=== PATIENT | female | born 1965 | race Caucasian/White ===

== ENCOUNTER → 2017-10-26 | Outpatient (CLI) | payer BC ==
[~2017-10-26] MED LIST: LIDOCAINE 1%-EPI 1:100K, 20ML ONE
== END | disposition home or self-care (01) ==
LOC: CFH 13:41
PROVIDERS: ATTEND Genetic Counselor, MS
DX: N63.22 Unspecified lump in the left breast, upper inner quadrant (principal)
CPT/HCPCS: 19083; 76641; 88305; G0204; J3490

== ENCOUNTER → 2017-11-27 | Outpatient (CLI) | payer BC ==
[~2017-11-27] MED LIST changes: +LIDOCAINE 1%, 10ML ONE; -LIDOCAINE 1%-EPI 1:100K, 20ML ONE; +LIDOCAINE 1%-EPI 1:100K, 30ML ONE
== END | disposition home or self-care (01) ==
LOC: CFH 14:56
PROVIDERS: ATTEND Internal Medicine Hematology & Oncology
DX: C50.212 Malignant neoplasm of upper-inner quadrant of left female breast (principal); N64.89 Other specified disorders of breast
CPT/HCPCS: 19083; 19084; 76642; 77066; 88305; J3490

== ENCOUNTER 2017-12-18 21:18 | Emergency (ER) | payer BC, MEDICAID ==
[~2017-12-18] VITALS: Ht 167.6 cm; Wt 64.4 kg
[2017-12-18] MEDS ORDERED: SODIUM CHLORIDE FLUSH 10ML SYR IVF ONE (22:00)
[2017-12-18 22:36] LABS: MICROSCOPIC AUTO
[2017-12-18 22:39] LABS: CULTURE INDICATED? NO
[2017-12-18 22:41] LABS: MEAN CORPUSCULAR HEMOGLOBIN 32.9 pg (27.0-34.8); MEAN CORPUSCULAR HGB CONC 33.8 g/dL (32.4-35.8); MEAN CORPUSCULAR VOLUME 97.4 fL (80-100); MEAN PLATELET VOLUME 8.9 fL (7.4-10.4); PLATELET COUNT 246 x10^3/uL (130-400); RED CELL DISTRIBUTION WIDTH 13.9 % (9.6-15.2)
[2017-12-18 22:53] LABS: ALANINE AMINOTRANSFERASE 139 U/L (12-78); ALBUMIN 3.4 g/dL (3.4-5.0); ANION GAP 9 mmol/L (5-15); CALCIUM 8.6 mg/dL (8.5-10.1); CHLORIDE 103 mmol/L (98-107); CREATININE 0.79 mg/dL (0.55-1.02)
[2017-12-18 22:55] LABS: ALKALINE PHOSPHATASE 145 U/L (45-117); TOTAL PROTEIN 7.6 g/dL (6.4-8.2)
[2017-12-18 22:56] LABS: RAPID INFLUENZA A Negative (Negative); RAPID INFLUENZA B Negative (Negative)
[2017-12-18 23:26] LABS: MD YES
[2017-12-18 23:30] LABS: <PLATELET ESTIMATE> ADEQUATE; <PLT MORPHOLOGY> NORMAL PLT MORPH; <RBC MORPHOLOGY> NORMAL; BAND#(MANUAL) 0.13 x10^3/uL; BANDS%(MANUAL) 4 % (0-7); LYMPH#(MANUAL) 2.18 x10^3/uL (1-3.4); LYMPHS% (MANUAL) 66 % (22-44); MONOS#(MANUAL) 0.96 x10^3/uL (0.3-2.7); MONOS% (MANUAL) 29 % (2-9); SEG#(MANUAL) 0.03 x10^3/uL (1.8-6.8); SEGS% (MANUAL) 1 % (42-75)
[2017-12-18] MEDS ORDERED: VANCOMYCIN PER PHARMACY MC ONE (23:30)
[2017-12-18] MEDS ORDERED: CEFEPIME 2 GM in DEXTROSE 5% 100 ML IV ONE (23:30)
[2017-12-18] MEDS ORDERED: LEVO500T8 PO (23:45)
[2017-12-19] MEDS ORDERED: VANCOMYCIN 1,200 MG in SODIUM CHLORIDE 0.9% 250 ML IV ONE
[2017-12-19] MEDS ORDERED: methylPREDNISolone SOD SUCC 125 MG/2 ML ONE (02:11)
[2017-12-19] MEDS ORDERED: DIPHENHYDRAMINE 50 MG/ML, 1ML ONE (02:11)
[2017-12-19] MEDS ORDERED: FAMOTIDINE 20 MG/2 ML ONE (02:12)
[2017-12-19] MEDS ORDERED: methylPREDNISolone SOD SUCC 125 MG/2 ML IVPush SCH (02:30)
[2017-12-19] MEDS ORDERED: DIPHENHYDRAMINE 50 MG/ML, 1ML IVPush ONE (02:30)
[2017-12-19] MEDS ORDERED: FAMOTIDINE 20 MG/2 ML IVPush ONE (02:30)
[2017-12-19 03:19] VITALS: BP 109/78
== END 2017-12-19 03:30 | disposition home or self-care (01) ==
LOC: ED 22:13
DX: R50.9 Fever, unspecified (principal); Z85.3 Personal history of malignant neoplasm of breast
CPT/HCPCS: 36415; 80053; 81001; 85025; 87040; 87400; 99284; J1200; J2930; J3370; J7050; S0028

== ENCOUNTER → 2017-12-18 | Outpatient (CLI) | payer BC, MEDICAID ==
[~2017-12-18] MED LIST changes: +LEVO500T8 PO; -LIDOCAINE 1%, 10ML ONE; -LIDOCAINE 1%-EPI 1:100K, 30ML ONE
== END | disposition home or self-care (01) ==
LOC: RAD 16:29
PROVIDERS: ATTEND Internal Medicine Hematology & Oncology
DX: D70.1 Agranulocytosis secondary to cancer chemotherapy (principal); M41.9 Scoliosis, unspecified
CPT/HCPCS: 71046

== ENCOUNTER → 2018-02-08 | Outpatient (CLI) | payer BC ==
[~2018-02-08] MED LIST changes: +GADOBUTROL 10 MMOL/10 ML VIAL ONE
== END | disposition home or self-care (01) ==
LOC: CFH 10:37
PROVIDERS: ATTEND Surgery
DX: C50.212 Malignant neoplasm of upper-inner quadrant of left female breast (principal)
CPT/HCPCS: A9585; C8908

== ENCOUNTER → 2018-02-27 | Outpatient (CLI) | payer BC ==
[~2018-02-27] MED LIST changes: +ALBU8.5H8 INH; +CHOL10002 PO; -GADOBUTROL 10 MMOL/10 ML VIAL ONE; +LORA10TA72 PO; +SENN-31 PO; +calcium
== END | disposition home or self-care (01) ==
LOC: CFH 13:18
PROVIDERS: ATTEND Internal Medicine Hematology & Oncology
DX: M41.85 Other forms of scoliosis, thoracolumbar region (principal); C50.212 Malignant neoplasm of upper-inner quadrant of left female breast
CPT/HCPCS: 71046

== ENCOUNTER 2018-03-01 08:00 | Day surgery (SDC) | payer BC ==
[~2018-03-01] VITALS: Ht 167.6 cm; Wt 64.5 kg
[~2018-03-01 08:00] MED LIST changes: -ALBU8.5H8 INH; -CHOL10002 PO; -LORA10TA72 PO; -SENN-31 PO; -calcium
[2018-03-01] MEDS ORDERED: LIDOCAINE 1%, 20ML ONE (09:24)
[2018-03-01] MEDS ORDERED: SODIUM BICARBONATE 4.2%, 5ML ONE (09:24)
[2018-03-01 10:40] VITALS: BP 106/73
[2018-03-01] MEDS ORDERED: LACTATED RINGERS 1,000 ML IV SCH (10:45)
[2018-03-01] MEDS ORDERED: BUPIVACAINE/PF 0.5% ONE (10:59)
[2018-03-01] MEDS ORDERED: ISOSULFAN BLUE 10 MG/ML, 5ML IV ONE ×2 (10:59→13:18)
[2018-03-01] MEDS ORDERED: EPINEPHRINE 1 MG/ML, 1ML ONE (10:59)
[2018-03-01] MEDS ORDERED: GABAPENTIN 300 MG CAPSULE PO ONE (11:00)
[2018-03-01] MEDS ORDERED: SCOPOLAMINE PATCH, 1.5MG PATCH.TD72 TD ONE (11:00)
[2018-03-01] MEDS ORDERED: ACETAMINOPHEN 500 MG TABLET PO ONE (11:00)
[2018-03-01] MEDS ORDERED: SENN-31 PO (11:08)
[2018-03-01] MEDS ORDERED: LORA10TA72 PO (11:08)
[2018-03-01] MEDS ORDERED: calcium (11:08)
[2018-03-01] MEDS ORDERED: CHOL10002 PO (11:08)
[2018-03-01] MEDS ORDERED: ALBU8.5H8 INH (11:08)
[2018-03-01] MEDS ORDERED: MIDAZOLAM 1 MG/ML, 2ML ONE (12:28)
[2018-03-01] MEDS ORDERED: PROPOFOL 10 MG/ML, 20ML ONE (12:28)
[2018-03-01] MEDS ORDERED: PROPOFOL 50 ML ONE ×2 (12:29→13:47)
[2018-03-01] MEDS ORDERED: FENTANYL PF 250 MCG/5ML ONE (12:29)
[2018-03-01] MEDS ORDERED: BUPIVACAINE/PF 0.5% INFIL ONE ×3 (13:17→13:29)
[2018-03-01] MEDS ORDERED: LABETALOL 5MG/ML, 20ML IV PRN (14:00)
[2018-03-01] MEDS ORDERED: PROMETHAZINE 25 MG/ML, 1ML IV PRN (14:00)
[2018-03-01] MEDS ORDERED: EPHEDRINE 50 MG/ML, 1ML IVPush PRN ×2 (14:00→16:30)
[2018-03-01] MEDS ORDERED: DIAZEPAM 5 MG/ML, 2ML IVPush PRN (14:00)
[2018-03-01] MEDS ORDERED: LORazepam 2 MG/ML, 1ML IVPush PRN (14:00)
[2018-03-01] MEDS ORDERED: ALBUTEROL SULFATE 2.5 MG/3 ML NPPB PRN (14:00)
[2018-03-01] MEDS ORDERED: ONDANSETRON 2MG/ML, 2ML IVPush PRN ×2 (14:00→19:30)
[2018-03-01] MEDS ORDERED: MEPERIDINE/PF 25MG/0.5ML IVPush PRN (14:00)
[2018-03-01] MEDS ORDERED: MIDAZOLAM 1 MG/ML, 2ML IV PRN (14:00)
[2018-03-01] MEDS ORDERED: PROMETHAZINE 12.5 MG SUPP PR PRN (14:00)
[2018-03-01] MEDS ORDERED: FENTANYL PF 100 MCG/2ML IV PRN ×2 (14:00→16:30)
[2018-03-01] MEDS ORDERED: morphine SULFATE 10 MG/ML, 1ML IV PRN (14:00)
[2018-03-01] MEDS ORDERED: OXYcodone 5 MG/5 ML ORAL.SOL UDC PO PRN ×2 (14:00→16:30)
[2018-03-01] MEDS ORDERED: CEFAZOLIN 1,000 MG ONE (14:51)
[2018-03-01] MEDS ORDERED: SUCCINYLCHOLINE 20 MG/ML, 10ML ONE (14:51)
[2018-03-01] MEDS ORDERED: DEXAMETHASONE 4 MG/ML, 1ML ONE (14:52)
[2018-03-01] MEDS ORDERED: ONDANSETRON 2MG/ML, 2ML ONE (14:52)
[2018-03-01] MEDS ORDERED: EPHEDRINE 50 MG/ML, 1ML ONE (15:04)
== END 2018-03-01 20:25 | disposition home or self-care (01) ==
LOC: SDC 08:00 → EDSTATUS 13:00 → 4NOR 18:45 → OUT 20:25
PROVIDERS: ATTEND Surgery
DX: C50.912 Malignant neoplasm of unspecified site of left female breast (principal)
CPT/HCPCS: 19285; 19301; 38525; 38792; 88305; 88307; 88329; 88333; A9541; C1729; J0171; J0330; J0690; J1100; J2250; J2405; J2704; J3010; J3490; J7120

== ENCOUNTER → 2018-04-04 | Outpatient (CLI) | payer BC ==
[~2018-04-04] MED LIST changes: +ACET-76 PO; +ALBU8.5H8 INH; +ASCO-90 PO; +CALC1CAP8 PO; +CHOL10002 PO; +LORA10TA72 PO; +MULT-724 PO; +OMEG-173 PO; +SENN-31 PO; +calcium
== END ==
LOC: ROC 13:44
PROVIDERS: ATTEND Radiology Radiation Oncology
DX: Z08 Encounter for follow-up examination after completed treatment for malignant neoplasm (principal); N63.22 Unspecified lump in the left breast, upper inner quadrant; D24.2 Benign neoplasm of left breast; I10 Essential (primary) hypertension; E78.00 Pure hypercholesterolemia, unspecified; Z85.3 Personal history of malignant neoplasm of breast; Z83.3 Family history of diabetes mellitus
CPT/HCPCS: 99214; G0463

== ENCOUNTER → 2018-06-29 | Outpatient (CLI) | payer BC | END | disposition home or self-care (01) | LOC: ROC 11:36 | PROVIDERS: ATTEND Radiology Radiation Oncology | DX: C50.212 Malignant neoplasm of upper-inner quadrant of left female breast (principal) | CPT/HCPCS: 99213; G0463 ==

== ENCOUNTER → 2018-08-10 | Outpatient (CLI) | payer BC | END | disposition home or self-care (01) | LOC: EDSTATUS 06-21 17:00 → ROC 07:55 | PROVIDERS: ATTEND Radiology Radiation Oncology | DX: Z08 Encounter for follow-up examination after completed treatment for malignant neoplasm (principal); C50.212 Malignant neoplasm of upper-inner quadrant of left female breast | CPT/HCPCS: 99212; G0463 ==

== ENCOUNTER → 2018-11-08 | Outpatient (CLI) | payer BC, MEDICAID | END | disposition home or self-care (01) | LOC: ROC 07:48 | PROVIDERS: ATTEND Radiology Radiation Oncology | DX: Z08 Encounter for follow-up examination after completed treatment for malignant neoplasm (principal); C50.212 Malignant neoplasm of upper-inner quadrant of left female breast | CPT/HCPCS: 99212; G0463 ==

== ENCOUNTER 2019-04-11 07:41 | Outpatient (CLI) | payer OTHER | END 2019-04-11 23:59 | disposition home or self-care (01) | LOC: ROC 07:41 | PROVIDERS: ATTEND Radiology Radiation Oncology | DX: C50.212 Malignant neoplasm of upper-inner quadrant of left female breast (principal) | CPT/HCPCS: 99212; G0463 ==

== ENCOUNTER → 2019-12-11 | Outpatient (CLI) | payer OTHER | END | disposition home or self-care (01) | LOC: RAD 08:26 | PROVIDERS: ATTEND Genetic Counselor, MS | DX: R94.5 Abnormal results of liver function studies (principal) | CPT/HCPCS: 76700 ==